=== PATIENT | male | born 1970 | race Caucasian/White ===

== ENCOUNTER 2024-10-24 06:46 | Emergency (ER) | payer BC, SELFPAY ==
[2024-10-24 06:52] VITALS: BP 154/89
[2024-10-24 06:58] VITALS: BP 169/90
[2024-10-24 07:00] VITALS: BP 156/84
[2024-10-24 07:18] VITALS: BMI 35.8
--- NOTE | 2024-10-24 07:57 | ED.GENMED ---
History of Present Illness
General
Chief Complaint: Dizziness
Time Seen by Provider: 10/24/24 07:42
History of Present Illness
History of Present Illness:
54-year-old male with history of A-fib presents to the emergency department for evaluation of dizziness and vomiting that began last night and worsened in the early hours this morning. States he has severe dizziness whenever his eyes are open. No
headaches or vision changes. Did have bronchitis approximately 2 weeks ago. No current fevers or neck pain.
Past History
Past History
ED Past Medical History: Cancer (Soft-tissue sarcoma left upper scapula) and Other (DVT in upper extremity and lower extremity)
ED Past Surgical History: Other (Resection of soft tissue mass, placement of a port)
Social History
Tobacco: Other (Chewing tobacco)
Alcohol: None
Drug: None
Personal:
Living: with family
Employment: Employed
Family History
Family History: Other
Review of Systems
Review of Systems
Allergies reviewed?: Yes
All Other Systems: ROS reviewed and negative except as documented in HPI and ROS
Phy Exam
Physical Exam
Physical Exam:
GEN: Well appearing, NAD, WDWN
HEENT: Oral mucosa moist, no scleral icterus, no nasal congestion
Cardiac: Regular rate
Lung: No respiratory distress, no tachypnea
MSK: No gross deformity or injuries
Skin: Good color, no pallor or jaundice, no rashes
Neuro: AO x3; CN II-XII grossly intact. BUE strength 5/5 in all fortune, sensation intact and symmetric. BLE strength 5/5 in all fortune, sensation intact and symmetric. Left beating horizontal nystagmus at rest. Negative test of skew
Psych: Calm, cooperative
Course
Orders/Labs/Results
Orders:
Orders
10/24/24 06:47
Electrocardiogram (*1) Urgent
Reason for Study: Vertigo / Dizzy
EKG- Treatment ONCE
10/24/24 07:22
Complete Blood Count/With Diff Urgent
10/24/24 07:52
Ondansetron Injectable [Zofran] 4 mg IV NOW STA
diazePAM [Valium Injection] 5 mg IV NOW STA
10/24/24 07:58
Comprehensive Metabolic Panel Urgent
10/24/24 09:19
Dexamethasone Sod Phosphate [Decadron] 10 mg IV NOW STA
Abnormal Lab Results
10/24/24
07:58
Glucose 219 H mg/dl
(70-99)
10/24/24 07:22
10/24/24 07:58
Vital Signs
Initial and Last Documented VS:
Initial Vital Signs
Temp Pulse Resp BP Pulse Ox
98.1 F 72 16 154/89 95
10/24/24 06:52 10/24/24 06:52 10/24/24 06:52 10/24/24 06:52 10/24/24 06:52
Last Documented Vital Signs
Temp Pulse Resp BP Pulse Ox
98.1 F 61 14 126/74 94
10/24/24 06:52 10/24/24 09:00 10/24/24 09:00 10/24/24 09:00 10/24/24 09:00
MDM/Problems Addressed
MDM/Problems Addressed:
Suspect peripheral vertigo based on horizontal left beating nystagmus at rest, this did improve with diazepam. Given the recent viral URI I suspect this is likely vestibular neuritis and will treat with corticosteroids. Patient was advised that
his blood sugar was mildly elevated and this will invariably get worse with steroids and thus he should follow-up with his primary care physician for further assessment within the next week if possible. ED return parameters discussed. Do not
suspect stroke so there is no indication for head CT or other neuroimaging at this time.
*Critical Care Note
Total Time (30-74mins, 75-104mins- exclusive of procedures): Not Applicable
ED Attending Note
-
Portions of this chart may have been created with voice recognition software.� Occasional wrong word or��sound alike� substitutions may have occurred due to the inherent limitations of voice recognition software.
Discharge Plan
Departure
Patient Disposition: Home (Routine Discharge)
Date of Disposition: 10/24/24
Time of Disposition: 09:18
Patient with high blood pressure during this ER visit?: No
Discharge Problem:
Acute vestibular neuritis
Instructions: Labyrinthitis
Prescriptions:
New
prednisone 20 mg tablet
60 mg PO DAILY Qty: 12 0RF
Rx Instructions:
60mg po qd x 2d, then 40mg po qd x 2d, then 20mg po qd x2d
diazepam 5 mg tablet
5 mg PO TID PRN (Reason: vertigo) Qty: 15 0RF
Referrals:
Adriana Wright MD [Family Provider] -
Activity Restrictions/Additional Instructions:
Return if symptoms worsen
Your blood sugar was mildly elevated in the ER today. This is not likely causing your symptoms however needs to be followed up by your primary care physician within 1 week
Interventions
Interventions:
*Risk Screen - Suicide Last Done: 10/24/24 06:52
*Neglect/Abuse Screening Last Done: 10/24/24 06:52
ED- Fall Risk Assessment Last Done: 10/24/24 07:19
*ED COVID-19 Vaccine History Last Done: 10/24/24 07:19
*Nursing Disposition Last Done: 10/24/24 10:16
ED- Neurological Assessment Last Done: 10/24/24 07:19
ED- Cardiac Assessment Last Done: 10/24/24 07:19
Discharge Date and Time
Discharge Date/Time: 10/24/24 10:05
Print Language: BRAZILIAN
[2024-10-24 08:00] VITALS: BP 134/84
[2024-10-24] MEDS: VALIUM INJECTION 5 MG IV (08:06)
[2024-10-24] MEDS: ZOFRAN 4 MG IV (08:06)
[2024-10-24 08:10] LABS: % Basophils 0.7 % (0-2); % Eosinophils 0.4 % (0-6); % Immature Granulocytes 0.4 % (0-0.5); % Lymphocytes 20.7 % (20.5-51.1); % Monocytes 8.1 % (1.7-9.3); % Neutrophils 69.7 % (42.2-75.2); Absolute Basophils 0.1 10^3/uL (0-0.2); Absolute Lymphocytes 1.4 10^3/uL (1.2-3.4); Absolute Monocytes 0.6 10^3/uL (0.1-0.6); Absolute Neutrophils 4.8 10^3/uL (1.4-6.5); Hematocrit 43.6 % (39.0-52.0); Hemoglobin 14.9 g/dL (13.0-18.0); Mean Corp Hgb Conc. 34.2 g/dL (33.0-37.0); Mean Corpuscular Hgb 29.6 pg (27.0-31.0); Mean Corpuscular Volume 86.7 fL (80.0-94.0); Mean Platelet Volume 9.6 fL (7.4-10.4); Nucleated Red Blood Cells % 0 % (-); Platelet Count 235 10^3/uL (130-400); Red Blood Cell Count 5.03 10^6/uL (4.70-6.10); Red Cell Dist. Width 12.3 % (11.5-14.5); White Blood Cell Count 6.9 10^3/uL (4.8-10.8)
[2024-10-24 09:00] VITALS: BP 126/74
[2024-10-24 09:08] LABS: ALT (SGPT) 25 U/L (0-50); AST (SGOT) 28 U/L (17-59); Albumin 4.1 g/dl (3.5-5.0); Alkaline Phosphatase 73 U/L (38-126); Blood Urea Nitrogen 13 mg/dl (9-20); Calcium 9.4 mg/dl (8.4-10.2); Carbon Dioxide 27 mmol/L (22-30); Chloride 105 mmol/L (98-107); Estimated Creatinine Clearance 109 ml/min; Glucose 219 mg/dl (70-99); Potassium 4.6 mmol/L (3.5-5.1); Sodium 138 mmol/L (135-145); Total Bilirubin 0.5 mg/dl (0.2-1.3); Total Protein 6.5 g/dl (6.3-8.2); eGFR > 60.00
[2024-10-24] MEDS: DECADRON 10 MG IV (09:23)
== END 2024-10-24 10:05 | disposition home or self-care (01) ==
LOC: EMR 06:46
PROVIDERS: EMERGENCY PHYSICIAN Student in an Organized Health Care Education/Training Program; FAMILY PHYSICIAN Internal Medicine
DX: H93.3X9 Disorders of unspecified acoustic nerve (principal); I48.91 Unspecified atrial fibrillation; Z86.718 Personal history of other venous thrombosis and embolism
CPT/HCPCS: 96374; 96375; 99284; 80053; 85025; 93005